=== PATIENT | male | born 1990 | race African-American/Black ===

== ENCOUNTER 2025-05-21 22:09 | Emergency (ER) | payer OTHER, SELFPAY ==
[2025-05-21 22:12] VITALS: BP 162/93; PULSE 68; RESP 22; TEMP 36.2; O2SAT 100; BMI 32.1
[2025-05-21 22:28] VITALS: PULSE 77; O2SAT 100
[2025-05-21 22:30] VITALS: PULSE 74; O2SAT 100
[2025-05-21] MEDS: ONDANSETRON 4 MG/2 ML INJ IV (22:40)
[2025-05-21] MEDS: HYDROMORPHONE 0.5 MG INJ IV (22:40)
[2025-05-21] MEDS: KETOROLAC 30 MG/ML VIAL 15 MG IV (22:40)
[2025-05-21 22:41] LABS: Add Manual Diff / Slide Review NO; Basophils Absolute Auto 200 /uL (0-100); Basophils Percent Auto 1.7 % (0-2); Eosinophils Absolute Auto 300 /uL (0-450); Eosinophils Percent Auto 2.7 % (2-4); Hematocrit 42.5 % (41-53); Hemoglobin 14.3 g/dL (13.5-17.5); Lymphocytes Absolute Auto 4900 /uL (1100-4500); Lymphocytes Percent Auto 51.6 % (25-40); Mean Corpuscular HGB Conc 33.7 % (30-36); Mean Corpuscular Hemoglobin 32.8 PG (26-34); Mean Corpuscular Volume 97.3 fL (80-100); Monocytes Absolute Auto 700 /uL (0-900); Monocytes Percent Auto 7.6 % (3-14); Neutrophils Absolute Auto 3400 /uL (1500-7000); Neutrophils Percent Auto 36.4 % (50-75); Platelet Count 219 X10^3/uL (150-400); Red Blood Cell Count 4.37 X10^6/uL (4.5-5.9); Red Cell Distribution Width 12.3 % (11.6-14.8); White Blood Cell Count 9.4 X10^3/uL (4.5-11.0)
[2025-05-21 22:47] LABS: Alanine Aminotransferase 45 IU/L (<50); Albumin 4.7 g/dL (3.5-5.0); Albumin Globulin Ratio 1.5 (1.0-2.8); Alkaline Phosphatase 95 U/L (38-126); Aspartate Aminotransferase 43 IU/L (17-59); BUN Creatinine Ratio 9.3 (6-22); Bilirubin Total 0.5 mg/dL (0.2-1.3); Blood Urea Nitrogen 11 mg/dL (9-20); Calcium 9.5 mg/dL (8.4-10.2); Carbon Dioxide 21 mmol/L (22-32); Chloride 105 mmol/L (98-107); Estimated Glomerular Filt Rate > 60 mL/min (>60); Globulin 3.1 g/dL (1.7-4.1); Glucose 129 mg/dL (70-99); HEMOLYSIS < 15 (0-50); Lipase 69 U/L (23-300); Potassium 2.9 mmol/L (3.4-5.1); Sodium 138 mmol/L (137-145); Total Protein 7.8 g/dL (6.3-8.2)
--- NOTE | 2025-05-21 22:50 | ED_ITS ---
HPI - General Adult General Chief complaint: Urogenital-Male Stated complaint: SOB, Back pain Time Seen by Provider: 05/21/25 22:32 Source: patient Mode of arrival: Wheelchair History of Present Illness HPI narrative: 35-year-old male with history of kidney stones, has 1 hour duration of nontraumatic left-sided lower abdominal pain. No nausea or vomiting. No fevers or chills. Denies cough or shortness of breath chest pain. He has not tried any treatment for this bout of pain. Related Data Previous Rx's ?Medication ?Instructions ?Recorded ciprofloxacin HCl 500 mg tablet 500 mg PO BID #20 tabs 05/22/25 (Cipro) Allergies Allergy/AdvReac Type Severity Reaction Status Date / Time Penicillins Allergy Verified 05/21/25 22:13 Patient History Social History Smoking Status: Current every day smoker Smoking Status: Current every day smoker Exam Narrative Exam Narrative: GENERAL: Well-developed patient, in mild distress. HEAD: Atraumatic. Normocephalic. EYES: No scleral icterus. No injection or drainage. ENT: Nose without bleeding, purulent drainage. No obvious facial injuries. NECK: Trachea midline. Moving neck well. CARDIOVASCULAR: Regular rate and rhythm without murmurs. RESPIRATORY: Clear to auscultation. Breath sounds equal bilaterally. No wheezes, rales, or rhonchi. GASTROINTESTINAL: Abdomen nondistended. Has some left lower quadrant tenderness. No guarding or rebound. EXTREMITIES: No gross deformities obvious. NEURO: AOx3. Motor functions grossly nonfocal. SKIN: No rash or erythema of visible areas Initial Vital Signs Initial Vital Signs: Vital Signs Temperature 97.2 F L 05/21/25 22:12 Pulse Rate 68 05/21/25 22:12 Respiratory Rate 22 05/21/25 22:12 Blood Pressure 162/93 H 05/21/25 22:12 Pulse Oximetry 100 05/21/25 22:12 Oxygen Delivery Method Room Air 05/21/25 22:12 Course Orders Ordered: Discontinued Medications Hydromorphone HCl (Hydromorphone 0.5 Mg Inj) 0.5 mg IV NOW ONE Stop: 05/21/25 22:32 Last Admin: 05/21/25 22:40 Dose: 0.5 mg Documented By: KYLIE POTASSIUM CHLORIDE IN WATER (Potassium Cl 10 Meq/100 Ml Lillie) 10 meq in 100 mls @ 100 mls/hr IV Q1H SWAPNIL Stop: 05/22/25 00:59 Ketorolac Tromethamine (Ketorolac 30 Mg/Ml Vial) 15 mg IV NOW ONE Stop: 05/21/25 22:32 Last Admin: 05/21/25 22:40 Dose: 15 mg Documented By: KYLIE Ondansetron HCl (Ondansetron 4 Mg/2 Ml Inj) 4 mg IV NOW PRN PRN Reason: Nausea And Vomiting Last Admin: 05/21/25 22:40 Dose: 4 mg Documented By: KYLIE Ondansetron HCl (Ondansetron 4 Mg Odt) 4 mg PO NOW PRN PRN Reason: Nausea And Vomiting Pantoprazole Sodium (Pantoprazole 40 Mg Vial) 40 mg IV NOW ONE Stop: 05/21/25 22:49 Vital Signs Vital signs: Vital Signs - 8 hr 05/21/25 22:12 05/21/25 22:28 05/21/25 22:30 Temperature 97.2 F L Pulse Rate 68 77 74 Respiratory Rate 22 Blood Pressure 162/93 H Pulse Oximetry 100 100 100 Oxygen Delivery Method Room Air 05/21/25 23:00 05/21/25 23:00 Temperature Pulse Rate 54 L Respiratory Rate 12 Blood Pressure 145/69 H Pulse Oximetry 100 Oxygen Delivery Method Medical Decision Making Lab Data Lab results reviewed: Yes I reviewed the patient's lab results. Lab results narrative: White blood cell count 9400, hemoglobin 14.3, platelets adequate. Glucose 129. Normal renal function. Serum CO2 21. Potassium 2.9 low. Sodium 138. Liver functions normal. Lipase normal. 05/21/25 22:28 05/21/25 22:28 Labs: Lab Results 05/21/25 Range/Units 22:28 WBC 9.4 (4.5-11.0) X10^3/uL RBC 4.37 L (4.5-5.9) X10^6/uL Hgb 14.3 (13.5-17.5) g/dL Hct 42.5 (41-53) % MCV 97.3 (80-100) fL MCH 32.8 (26-34) PG MCHC 33.7 (30-36) % RDW 12.3 (11.6-14.8) % Plt Count 219 (150-400) X10^3/uL Neut % (Auto) 36.4 L (50-75) % Lymph % (Auto) 51.6 H (25-40) % [place] % (Auto) 7.6 (3-14) % Eos % (Auto) 2.7 (2-4) % Baso % (Auto) 1.7 (0-2) % Neut # (Auto) 3400 (5155-0099) /uL Lymph # (Auto) 4900 H (2715-4057) /uL [place] # (Auto) 700 (0-900) /uL Eos # (Auto) 300 (0-450) /uL Baso # (Auto) 200 H (0-100) /uL Sodium 138 (137-145) mmol/L Potassium 2.9 L (3.4-5.1) mmol/L Chloride 105 (98-107) mmol/L Carbon Dioxide 21 L (22-32) mmol/L BUN 11 (9-20) mg/dL Creatinine 1.18 (0.66-1.25) mg/dL Estimated GFR > 60 (>60) mL/min BUN/Creatinine Ratio 9.3 (6-22) Glucose 129 H (70-99) mg/dL Calcium 9.5 (8.4-10.2) mg/dL Magnesium 1.8 (1.6-2.3) mg/dL Total Bilirubin 0.5 (0.2-1.3) mg/dL AST 43 (17-59) IU/L ALT 45 (<50) IU/L Alkaline Phosphatase 95 (38-126) U/L Total Protein 7.8 (6.3-8.2) g/dL Albumin 4.7 (3.5-5.0) g/dL Globulin 3.1 (1.7-4.1) g/dL Albumin/Globulin Ratio 1.5 (1.0-2.8) Lipase 69 (23-300) U/L Imaging Data CT scan - abdomen/pelvis: Radiologist's Impression: [address] [address] [address] Scan Report Signed Patient: Feliciano Ellison MR#: [id number] : 1990 Acct:[id number] Age/Sex: 35 / M Date of Service: 05/21/25 Loc: ED Accession Number: [id number] Procedure: CT abdomen pelvis w con Ordering Provider: Brennen Hernandez MD PROCEDURE: CT ABDOMEN PELVIS W CON INDICATIONS: RLQ pAIN, HX STONES TECHNIQUE: After the administration of intravenous contrast, axial sections acquired from the lung bases to the pubic symphysis. Coronal and sagittal reformats were performed. For radiation dose reduction, the following was used: automated exposure control, adjustment of mA and/or kV according to patient size. COMPARISON: None. FINDINGS: Image quality: Diagnostic. Lower Chest: No significant findings. ABDOMEN: Liver: No solid mass. Gallbladder: No radiopaque gallstones or wall thickening. Biliary ducts: No biliary dilation. Pancreas: No ductal dilation. Spleen: Size is within normal limits. Adrenal Glands: No adrenal nodules. Kidneys and Ureters: There is a 2 mm obstructing stone seen at the right ureterovesicular junction, with associated [id number] right-sided hydroureter and hydronephrosis. To the limits of this study performed without IV contrast, no nonobstructing kidney stones are seen. No solid mass. No complex renal cystic lesion which requires follow up. Stomach and Bowel: A normal appendix is seen, as on series 2, image 109 and on series 3, image 37. No focal right lower quadrant inflammatory change can be seen. The colon is largely collapsed. Moderate generalized colonic wall thickening can be seen, particularly distally No dilated loops of small bowel are seen. Peritoneum: No abnormal intraperitoneal fluid. No free air. Ventral Wall: No significant ventral hernia. Abdominal Nodes: No retroperitoneal or mesenteric adenopathy by size criteria. Vessels: Aorta and inferior vena cava are normal in size. PELVIS: Pelvic Organs: Unremarkable. Bladder: No bladder wall thickening, accounting for underdistention. Pelvic Nodes: No enlarged lymph nodes. Miscellaneous: No inguinal hernias are seen. Bones: No aggressive osseous abnormality. IMPRESSION: 2 mm obstructing stone seen at the right ureterovesicular junction. Normal appendix. Moderate generalized colonic wall thickening can be seen, which is worst distally. Please correlate with potential infectious and inflammatory causes of colitis. No findings of perforation or abscess can be seen. Dictated by: Aravind Guillen M.D. on 05/21/2025 at 22:46 Approved by: Aravind Guillen M.D. on 05/21/2025 at 22:[address] [facility] Narrative Medical decision making narrative: 35-year-old male with history of kidney stones, nontraumatic left lower quadrant abdominal pain, does have tenderness in that area which is unusual for him. Afebrile, sirs screen negative. Labs pending. CT abdomen and pelvis ordered. IV Toradol, IV Dilaudid. Keep NPO. Low potassium level, IV potassium ordered, keep NPO awaiting CT results. CT results pending. 2330, nursing reports patient demanded to leave. CT results are still pending. PATIENT ELOPED from the emergency department before any discussion with me. 0100, late entry. CT abdomen and pelvis shows 2 mm distal right ureteral stone. Also suggestive of colonic thickening, no perforation or abscess or obstructive changes. History of penicillin allergy. Consider sending prescription for ciprofloxacin/metronidazole roll antibiotic regimen to his pharmacy (none listed) if he is amenable to treating possible colitis changes. ED nurse charge rn to contact patient regarding CT findings above. Discharge Plan Departure Patient Disposition: Elopement Clinical Impression: Abdominal pain, Hypokalemia, Right ureteral stone, Colitis Prescriptions: New ciprofloxacin HCl [Cipro] 500 mg tablet 500 mg PO BID Qty: 20 0RF
[2025-05-21 23:00] VITALS: BP 145/69; PULSE 54; RESP 12; O2SAT 100
--- NOTE | 2025-05-21 23:03 | PC.NURSE ---
pt had diarrhea. green in color and mucous
[2025-05-21 23:23] LABS: Magnesium 1.8 mg/dL (1.6-2.3)
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
--- NOTE | 2025-05-21 23:40 | PC.NURSE ---
At this time RN had just assumed care of patient. Pt being brought back from imaging in ED stretcher with electrical tech when he rips off nasal cannula stating I don't need to wear this! RN to room to inform patient that was fine unless he went back to sleep and dropped his oxygen saturation again. Explained that the medicine could make you relax your breathing and sometimes need supplement to keep levels appropriate then left room. Then heard commotion in exam room and pt yelling Get me my papers! I want to leave! When RN enters room to assess situation he continues I'm not going to sit here and be treated like this! Y'all talkin down to me like I'm a fucking idiot! When RN enquires about situation pt continues to yell aggressively about not being treated well and being spoken down to. Pt states That other prieto kept coming in here 6 or 7 times repeatedly asking me what kind of drugs I take! I don't take no fucking drugs! 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 I want my papers and to get out of here! Get this shit off of me! as he is pulling off vs monitoring equipment and starts to pull at IV. Pt refusing to speak to RN about what has upset him but continues to yell about not being treated well. nuclear reactor technician in to remove IV while RN retrieves VDC form. Pt refusing to allow tech to remove IV and pulls it out himself, then refuses to allow tech to wrap IV site. RN to room with VDC form. Female plastic injection mold maker reaches out to take paper and sign. RN willingly hands to her since pt had just had registration have her sign for him. Pt then reaches for paper and begins to write down information from RN's badge, scribbles out female companions signature while continuing to cuss and yell at RN. Pt and female plastic injection mold maker leave department at this time.
== END 2025-05-21 23:38 | disposition left against medical advice (07) ==
PROVIDERS: Emergency Provider Emergency Medicine
DX: N20.1 Calculus of ureter (principal); K52.9 Noninfective gastroenteritis and colitis, unspecified; E87.6 Hypokalemia; R10.32 Left lower quadrant pain; Z87.442 Personal history of urinary calculi
CPT/HCPCS: 36415; 74177; 80053; 83690; 83735; 85025; 87177; 96374; 96375; 99284; J1171; J1885; J2405; Q9967